=== PATIENT | male | born 1980 | race Caucasian/White ===

== ENCOUNTER 2021-08-15 09:56 | Outpatient (REF) | payer OTHER, SELFPAY | END 2021-08-15 09:57 | disposition home or self-care (01) | LOC: HO.WFDLDS 09:56 | PROVIDERS: Visit Provider Internal Medicine | DX: Z20.822 Contact with and (suspected) exposure to COVID-19 (principal) | CPT/HCPCS: C9803; U0003; U0005 ==

== ENCOUNTER 2024-04-01 13:07 | Emergency (ER) | payer OTHER, SELFPAY ==
--- NOTE | ~2024-04-01 | XR_ITS ---
EXAMINATION: XR FOREARM, LEFT CLINICAL INFORMATION: Laceration to left forearm. COMPARISON: None available. TECHNIQUE: AP and lateral views of the left forearm were obtained. FINDINGS: Alignment is anatomic. No displaced fracture or dislocation. No elbow joint effusion. No retained radiopaque foreign body or soft tissue gas. XR/XR forearm LT 2V IMPRESSION: No acute bony abnormality.
[2024-04-01 13:10] VITALS: BP 117/77; PULSE 92; RESP 18; TEMP 36.1; O2SAT 94; BMI 32.5
--- NOTE | 2024-04-01 13:11 | ED_ITS ---
HPI - Skin/Abscess/Foreign Bdy General Chief complaint: Wound/Laceration Stated complaint: L arm lac Time Seen by Provider: 04/01/24 13:45 Source: patient Mode of arrival: ambulatory Limitations: no limitations History of Present Illness HPI narrative: Patient is a 44-year-old male 44 yo male here for eval of lac to left forearm sustained while at work [employer]. reports scraping the floor with a razor blade when the blade slipped and knicked the dorsal aspect of left forearm. The area immediately began to bleed. wrapped the arm with tshirt with pressure applied. tetanus UTD. Denies numbness/tingling/weakness distally. + 2 cm lac noted to dorsal aspect of left forearm. no obvious FB. bleeding controlled in triage. Laceration dressed. Related Data Allergies Allergy/AdvReac Type Severity Reaction Status Date / Time No Known Allergies Allergy Verified 04/01/24 13:13 Review of Systems Review of Systems: Yes all other systems are reviewed and are negative PMFSH Past Medical History Attestation statement: The following information was validated with the patient. Source: old records reviewed Social History Social History Advance Directives: No Advance Directives Information Provided: Yes Do you have a plan to hurt others: No Plan Physical Exam Vital Signs: Vital Signs: Last Vital Signs Temp 97 F 04/01/24 13:10 Pulse 92 04/01/24 13:10 Resp 18 04/01/24 13:10 BP 117/77 04/01/24 13:10 Pulse Ox 94 04/01/24 13:10 O2 Del Method Room Air 04/01/24 13:10 BMI result Body Mass Index 32.5 Appearance: Alert.?Oriented to person, place and time. No acute distress.?Normal affect. CVS: Heart sounds normal. Normal heart rate and rhythm.? Pulses normal.?? Respiratory: No respiratory distress.? Lung sounds clear to auscultation bilaterally?? Skin: Skin warm and dry.? Normal skin color.? 2 cm linear horizontal laceration to the distal aspect of the left anterior forearm, subcutaneous tissue exposure, no active bleeding Extremities: No extremity edema.? Neuro: Moves all extremities spontaneously. Sensation intact bilaterally. Ambulates with normal steady gait. Course Course Course Narrative: This is a Rapid Medical Examination (RME) performed by Lashay Wlicox PA-C in triage. Full HPI, ROS, assessment and treatment plan per primary provider in the Main ED. 44 yo male here for eval of lac to left forearm sustained while at work [employer]. reports scraping the floor with a razor blade when the blade slipped and knicked the dorsal aspect of left forearm. The area immediately began to bleed. wrapped the arm with tshirt with pressure applied. tetanus UTD. Denies numbness/tingling/weakness distally. + 2 cm lac noted to dorsal aspect of left forearm. no obvious FB. bleeding con trolled in triage. Laceration dressed. Plan: xr, lac repair Medical Decision Making Medical Decision Making MDM Narrative: Patient is a 44-year-old male who presents emergency department for evaluation of an accidental laceration to the left forearm as per HPI. Overall appears well, extremities neurovascularly intact distally. XR is without evidence of retained foreign body. The wound was irrigated extensively with saline and Betadine, repaired under aseptic technique as per procedural portion of this note. His tetanus vaccination is up-to-date. Discussed outpatient monitoring for signs symptoms of infection, worrisome signs and symptoms that warrant re- evaluation, advised to follow-up with PCP or return to emergency department for suture removal. Differential Diagnosis Differential Diagnoses: The differential diagnosis associated with the presentation includes (See narrative above) Independent Interpretation I performed an independent interpretation of an: Plain X-Ray (No retained foreign body) Radiology Impression Discussion of test interpretation with radiology: I have reviewed the radiologist's reading. Prescription Management I considered prescription management with: Pain Medication (Acetaminophen/ibuprofen) Procedures Laceration Laceration 1: Site: upper extremity Side (If applicable): left Size (cm): 2 Description: linear Depth: simple, single layer Local Anesthetic: lidocaine 1% Amount of anesthesia used (mL): 2 Pre-repair: wound explored Skin layer closed with: nylon Size (cm): 5-0 Number of sutures: 2 Technique: simple, interrupted Discharge Plan Discharge Clinical Impression: Laceration Patient Disposition: Home, Self-Care Instructions: Laceration (ED) Additional Instructions: You may clean the area gently slowly with warm water and mild non scented soap over the next 2 days, dry the area afterwards, otherwise should remain dry until removed. Avoid prolonged soaking in water such as swimming, soaking in the bath. 2 Sutures will need to be removed in 7 days, you may return back to emergency department or follow-up with your primary care doctor for removal Return with any new or worsening symptoms or concerns such as increasing pain, redness, swelling, pus-like discharge, fevers or chills. Referrals: Lucian Medina MD [Primary Care Provider] - Print Language: Macanese
[2024-04-01] MEDS: Lidocaine HCl 1 % MPF 5 ML VIAL SUBCUT (14:25)
[2024-04-01 14:57] VITALS: BP 117/77; PULSE 92; RESP 18; TEMP 36.1; O2SAT 94
== END 2024-04-01 14:57 | disposition home or self-care (01) ==
PROVIDERS: Emergency Provider Emergency Medicine; PCP Internal Medicine
DX: S51.812A Laceration without foreign body of left forearm, initial encounter (principal); W27.8XXA Contact with other nonpowered hand tool, initial encounter; Y93.E5 Activity, floor mopping and cleaning; Y92.019 Unspecified place in single-family (private) house as the place of occurrence of the external cause; Y99.9 Unspecified external cause status
CPT/HCPCS: 12001; 73090; 99282; 99284

== ENCOUNTER → 2024-04-06 08:02 | Outpatient (BNVA) | payer OTHER, SELFPAY | PROVIDERS: PCP Internal Medicine; Visit Provider Registered Nurse | DX: S51.812A Laceration without foreign body of left forearm, initial encounter (principal); W27.8XXA Contact with other nonpowered hand tool, initial encounter | CPT/HCPCS: 99202 ==

== ENCOUNTER → 2024-04-08 08:00 | Outpatient (BNVA) | payer OTHER, SELFPAY | PROVIDERS: PCP Internal Medicine; Visit Provider Internal Medicine | DX: S51.812D Laceration without foreign body of left forearm, subsequent encounter (principal); W27.8XXA Contact with other nonpowered hand tool, initial encounter | CPT/HCPCS: 99212; 99213 ==

== ENCOUNTER → 2024-09-12 09:46 | Outpatient (BNVA) | payer OTHER, SELFPAY | PROVIDERS: PCP Internal Medicine; Visit Provider Physician Assistant Medical | DX: R04.0 Epistaxis (principal) | CPT/HCPCS: 99202 ==

== ENCOUNTER 2025-07-27 12:58 | Outpatient (REF) | payer OTHER, SELFPAY ==
--- OUTSIDE RECORDS SUMMARY | 2025-07-27 18:41 | XMS_ITS | Continuity of Care Document ---
Author Organization [facility] [address] [place] [address] Phone [phone] Care Team Providers Care Staff Appraiser Name Role Phone Lucian Medina M.D. Care Team Information Recei espinoza [phone] Problems Active Problems Provider Date Obesity Rhett Dubon NP Onset: 06/20 Testicular hypofunction Rhett Dubon NP Onse t: 06/20/2025 Social History Type Date Description Comments Sex Male Sex Unknown Marital Status Legal Status: Lives With Spouse Lives With Children 7 and 10 ETOH Use Occasionally consumes alcoho l Tobacco Use Start: Unknown End: Unknown Patient is a former smoker Recreational Drug Use Never Used Drugs Smoking Status Reviewed: 06/20/25 Patient is a former smoker Allergies and adverse reactions Description No Known Drug Allergies Medications Active Medications SIG Qnty Indications Order ing Provider Date Wegovy2.4mg/0.75ML Solution Auto-Inject Inject 0.5 ML Subcutaneously One Time Per Week Lucian Medina M.D. [id number] Tablets Take 1 Tablet By Mouth Every Day Unknown Vital Signs Date Vital Result Comment 06/20/2025 9:23am BP Systolic 120 mmHg BP Diastolic 76 mmHg Heart Rate 84 /min Height 69 inches 5'9 Weight 231.12 lb BMI (Body Mass Index) 34.1 kg/m2 Results Test Acquired Date Facility Test Result H/L Range N ote Cortisol - Am 06/21/2025 [facility] Cortisol - Am 8.2 g/dL 6.2-19.4 Prolactin 06/21/2025 [facility] Prolactin 4.8 ng/mL 3.9-22.7 Testosterone, Free And Total 06/21/2025 [facility] Testosterone 300 ng/dL 264-916 1 Free Testosterone(Dire ct) 11.7 pg/mL 6.8-21.5 CBC, Platelet, No Differential 06/21/2025 [facility] WBC 6.8 x10E3/uL 3.4-10.8 RBC 4.74 x10E6/uL 4.14-5.80 Hemoglobin 16.4 g/dL 13.0-17.7 Hematocrit 45.7 % 37.5-51.0 MCV 96 fL 79-97 MCH 34.6 pg High 26.6-33.0 MCHC 35.9 g/dL High 31.5-35.7 RDW 11.7 % 11.6-15.4 Platelets 269 x10E3/uL 150-450 NRBC TNP Iron And Tibc 06/21/2025 [facility] Iron Bind.Cap.(Tibc) 323 g/dL 250-450 Uibc 201 g/dL 111-343 Iron 122 g/dL 38-169 Iron Saturation 38 % 15-55 Ferritin 06/21/2025 [facility] Ferritin 450 ng/mL High 30-400 1 Adult male reference interval is based on a population of healthy nonobese males (BMI <30) between 19 and 39 years old. [place] et.al. JCEM 2017,102;6752-1097. PMID: 73103343. Medical Devices Description No Information Available Encounters Type Date Location Provider Dx Diagnosis Office Visit 06/20/2025 9:15a Main Office Rhett Dubon NP E29.1 Testicular hypofunction E83.119 Hemochromatosis, uns pecified Assessments Date Code Description Provider 06/20/2025 E29.1 Testicular hypofunction Rochelle Dubon NP 06/20/2025 E83.119 Hemochromatosis, unspecified Rhett Dubon NP Plan of Treatment Future Appointment(s):* 09/19/2025 8:00 am - Rhett Dubon NP at Main Office 06/20/2025 - Rhett Dubon NP* E29.1 Testicular hypofunction * E83.119 Hemochromatosis, unspecified Functional Status Description No Information Available Mental Status Description No Information Available Referrals Refer to Reason for Referral Status Appt [facility] Hemachromatosis Creat ed [address] [place] [address] [phone]
== END 2025-07-27 12:59 | disposition home or self-care (01) ==
LOC: HO.BBR 12:58
PROVIDERS: Visit Provider Internal Medicine
DX: Z13.89 Encounter for screening for other disorder (principal)